=== PATIENT | female | born 1960 | race Caucasian/White ===

== ENCOUNTER 2017-12-27 19:04 | Emergency (ER) | payer MEDICAID ==
[~2017-12-27] VITALS: Ht 172.7 cm; Wt 61.0 kg
[2017-12-27] MEDS ORDERED: PRED20TA PO (20:30)
[2017-12-27] MEDS ORDERED: ALBU8.5H8 INH (20:30)
[2017-12-27] MEDS ORDERED: LEVO500T2 PO (20:30)
[2017-12-27] MEDS ORDERED: normal saline 1000ml 1,000 ML IV ONE (20:30)
[2017-12-27] MEDS ORDERED: levoFLOXACIN 750MG TABLET PO ONE (20:30)
[2017-12-27] MEDS ORDERED: methylPREDNISolone sod succ/PF 40mg inj. IV ONE (20:30)
[2017-12-27] MEDS ORDERED: ipratropium/albuterol 3ml nebule NEB ONE (20:30)
[2017-12-27 21:32] VITALS: BP 118/78
== END 2017-12-27 21:35 | disposition home or self-care (01) ==
LOC: ER 19:05
DX: R05 Cough (principal); J44.9 Chronic obstructive pulmonary disease, unspecified; F17.210 Nicotine dependence, cigarettes, uncomplicated; Z79.899 Other long term (current) drug therapy
CPT/HCPCS: 71045; 93005; 94640; 94760; 96361; 96374; 99284; J2920; J7030

== ENCOUNTER 2019-03-26 17:17 | Emergency (ER) | payer MEDICAID, OTHER ==
[~2019-03-26] VITALS: Ht 170.2 cm; Wt 56.0 kg
[~2019-03-26 17:17] MED LIST: ALBU8.5H8 INH
[2019-03-26 19:22] VITALS: BP 112/65
[2019-03-26] MEDS ORDERED: ipratropium/albuterol 3ml nebule NEB ONE (20:00)
== END 2019-03-26 20:29 | disposition left against medical advice (07) ==
LOC: ER 17:18
DX: J06.9 Acute upper respiratory infection, unspecified (principal); J44.9 Chronic obstructive pulmonary disease, unspecified; F17.200 Nicotine dependence, unspecified, uncomplicated; Z59.0 Homelessness; Z79.899 Other long term (current) drug therapy
CPT/HCPCS: 99281; 99283

== ENCOUNTER 2020-10-12 16:32 | Inpatient (IN) | payer MEDICAID ==
[~2020-10-12] VITALS: Ht 170.2 cm; Wt 57.0 kg
[2020-10-12] MEDS ORDERED: methylPREDNISolone sod succ 125mg/2ml vial IV ONE ×2 (17:10)
[2020-10-12] MEDS ORDERED: CefTRIAXone 2gm/D5W 50ml BAG 50 ML IV ONE (17:10)
[2020-10-12] MEDS ORDERED: normal saline 1000ML IV soln IVB ONE (17:10)
[2020-10-12] MEDS ORDERED: albuterol 2.5 MG/3 ML nebule NEB ONE (17:10)
[2020-10-12 17:33] LABS: BASOPHILS # (AUTO) 0.1 X10'3 (0-0.2); BASOPHILS % (AUTO) 0.9 % (0-1); EOSINOPHILS # (AUTO) 0.4 X10'3 (0-0.9); EOSINOPHILS % (AUTO) 4.6 % (0-6); HEMATOCRIT 39.9 % (35.0-45.0); HEMOGLOBIN 13.5 g/dl (12.0-16.0); LYMPHOCYTES # (AUTO) 3.1 X10'3 (1.1-4.8); LYMPHOCYTES % (AUTO) 33.1 % (21-51); MEAN CORPUSCULAR HEMOGLOBIN 30.5 PG (27.0-31.0); MEAN CORPUSCULAR HGB CONC 33.7 g/dL (33.0-36.5); MEAN CORPUSCULAR VOLUME 90.3 FL (78-98); MEAN PLATELET VOLUME 7.6 FL (7.4-10.4); MONOCYTES # (AUTO) 0.7 X10'3 (0-0.9); MONOCYTES % (AUTO) 7.6 % (2-12); NEUTROPHILS % (AUTO) 53.8 % (42-75); PLATELET COUNT 323 X10'3 (140-440); RED BLOOD COUNT 4.42 X10'6 (4.20-5.60); WHITE BLOOD COUNT 9.2 X10'3 (4.5-11.0)
[2020-10-12 17:49] LABS: ALANINE AMINOTRANSFERASE 16 U/L (12-78); ALBUMIN 3.5 G/DL (3.4-5.0); ALBUMIN/GLOBULIN RATIO 0.9 (1.1-1.5); ALKALINE PHOSPHATASE 63 IU/L (46-116); ANION GAP 8 (8-16); ASPARTATE AMINO TRANSFERASE 7 U/L (10-37); BILIRUBIN,TOTAL 0.2 MG/DL (0.1-1.0); BLOOD UREA NITROGEN 20 MG/DL (7-18); CALCIUM 8.9 MG/DL (8.5-10.1); CHLORIDE 110 MMOL/L (99-107); CREATININE 1.11 MG/DL (0.40-0.90); GLUCOSE 119 MG/DL (70-104); POTASSIUM 3.9 MMOL/L (3.5-5.1); SODIUM 144 MMOL/L (135-145); TOTAL CARBON DIOXIDE 26.2 MMOL/L (24-32); TOTAL PROTEIN 7.3 G/DL (6.4-8.2); eGFR 50 ML/MIN
[2020-10-12 17:58] LABS: PARTIAL THROMBOPLASTIN TIME 28 SECONDS (22-32)
[2020-10-12 18:00] LABS: MAGNESIUM 2.2 MG/DL (1.5-2.4)
[2020-10-12] MEDS ORDERED: azithromycin 250mg tablet PO ONE (18:20)
[2020-10-12] MEDS ORDERED: NO HOME MEDS (18:37)
[2020-10-12] MEDS ORDERED: potassium Cl 40MEQ/1/2NS 520ml 520 ML IV PRN ×2 (19:45)
[2020-10-12] MEDS ORDERED: magnesium Cl slow-release 64mg tablet PO PRN (19:45)
[2020-10-12] MEDS ORDERED: magnesium 2GM in 50ml NS 50 ML IV PRN (19:45)
[2020-10-12] MEDS ORDERED: potassium Cl 20 mEq SR tablet PO PRN ×2 (19:45)
[2020-10-12] MEDS ORDERED: morphine 2 MG/ML inj. syringe IV PRN (19:45)
[2020-10-12] MEDS ORDERED: HYDROcodone/acetaminophen 5mg/325mg tablet PO PRN (19:45)
[2020-10-12] MEDS ORDERED: mag hydrox/Alum hydrox/simeth 30ml oral suspension PO PRN (19:45)
[2020-10-12] MEDS ORDERED: magnesium 4gm in 100ml NS 100 ML IV PRN (19:45)
[2020-10-12] MEDS ORDERED: ondansetron/PF 4mg/2ml inj IV PRN (19:45)
[2020-10-12] MEDS ORDERED: acetaminophen 325mg tablet PO PRN ×2 (19:45)
[2020-10-12] MEDS ORDERED: magnesium hydroxide 30ml (MOM) UD suspension PO PRN (19:45)
[2020-10-12] MEDS: methylPREDNISolone sod succ 125mg/2ml vial IV SCH (20:00)
[2020-10-12] MEDS: K and/or MAG REPLACEMENT MC SCH (20:06)
--- NOTE | 2020-10-12 20:06 | NUR ---
Hospitalist at bedside for patient assessment and discussion of plan of care.
[2020-10-12] MEDS: normal saline 1000ml 1,000 ML IV SCH (20:37)
[2020-10-12] MEDS: heparin, porcine 5000 units/ml vial SQ SCH (20:38)
[2020-10-12] MEDS ORDERED: temazepam 15mg capsule PO PRN (21:00)
[2020-10-12] MEDS: levalbuterol 0.63mg/3ml nebule IH SCH (23:30)
[2020-10-13 02:30] VITALS: BP 107/57
[2020-10-13] MEDS: levalbuterol 0.63mg/3ml nebule IH SCH ×4 (02:45→20:12)
--- NOTE | 2020-10-13 06:00 | NUR ---
Patient in room PCU 3024. I have received report from Steve SAMUELS and had the opportunity to ask questions and assume patient care.
[2020-10-13 06:58] LABS: BASOPHILS % (AUTO) 0.3 % (0-1); EOSINOPHILS % (AUTO) 0 % (0-6); HEMATOCRIT 39.3 % (35.0-45.0); HEMOGLOBIN 12.9 g/dl (12.0-16.0); MEAN CORPUSCULAR HEMOGLOBIN 30.1 PG (27.0-31.0); MEAN CORPUSCULAR HGB CONC 32.8 g/dL (33.0-36.5); MEAN CORPUSCULAR VOLUME 91.8 FL (78-98); MEAN PLATELET VOLUME 7.9 FL (7.4-10.4); MONOCYTES # (AUTO) 0.1 X10'3 (0-0.9); MONOCYTES % (AUTO) 2.5 % (2-12); NEUTROPHILS % (AUTO) 78.2 % (42-75); PLATELET COUNT 326 X10'3 (140-440); RED BLOOD COUNT 4.28 X10'6 (4.20-5.60); WHITE BLOOD COUNT 5.1 X10'3 (4.5-11.0)
[2020-10-13 07:00] VITALS: BP 116/65
[2020-10-13 07:14] LABS: ALANINE AMINOTRANSFERASE 21 U/L (12-78); ALBUMIN 3.3 G/DL (3.4-5.0); ALBUMIN/GLOBULIN RATIO 0.9 (1.1-1.5); ALKALINE PHOSPHATASE 51 IU/L (46-116); ANION GAP 11 (8-16); ASPARTATE AMINO TRANSFERASE 15 U/L (10-37); BILIRUBIN,TOTAL 0.2 MG/DL (0.1-1.0); BLOOD UREA NITROGEN 19 MG/DL (7-18); BUN/CREATININE RATIO 22.1 (6.6-38.0); CALCIUM 8.8 MG/DL (8.5-10.1); CHLORIDE 108 MMOL/L (99-107); CREATININE 0.86 MG/DL (0.40-0.90); GLUCOSE 124 MG/DL (70-104); POTASSIUM 4.2 MMOL/L (3.5-5.1); SODIUM 144 MMOL/L (135-145); TOTAL CARBON DIOXIDE 25.4 MMOL/L (24-32); TOTAL PROTEIN 6.9 G/DL (6.4-8.2); eGFR 67 ML/MIN
[2020-10-13] MEDS: K and/or MAG REPLACEMENT MC SCH ×2 (08:00→19:25)
[2020-10-13] MEDS: levoFLOXACIN-Levaquin 500mg/D5 100 ML IV SCH (09:59)
[2020-10-13] MEDS: methylPREDNISolone sod succ 125mg/2ml vial IV SCH ×2 (09:59→19:24)
[2020-10-13] MEDS: furosemide 20MG tablet PO SCH (10:00)
[2020-10-13] MEDS: heparin, porcine 5000 units/ml vial SQ SCH ×2 (10:00→19:24)
[2020-10-13 11:00] VITALS: BP 116/57
[2020-10-13 15:00] VITALS: BP 123/57
[2020-10-13 18:00] VITALS: BP 114/65
--- NOTE | 2020-10-13 18:10 | NUR ---
Problems reprioritized. Patient report given, questions answered & plan of care reviewed with Juliann SAMUELS.
[2020-10-13 22:00] VITALS: BP 130/65
[2020-10-14 02:00] VITALS: BP 113/65
[2020-10-14] MEDS: levalbuterol 0.63mg/3ml nebule IH SCH ×4 (02:51→19:59)
--- NOTE | 2020-10-14 06:05 | NUR ---
Patient in room PCU 3024. I have received report from Juliann SAMUELS and had the opportunity to ask questions and assume patient care.
[2020-10-14 06:12] LABS: BASOPHILS % (AUTO) 0.1 % (0-1); EOSINOPHILS % (AUTO) 0 % (0-6); HEMATOCRIT 38.2 % (35.0-45.0); HEMOGLOBIN 12.6 g/dl (12.0-16.0); LYMPHOCYTES # (AUTO) 0.9 X10'3 (1.1-4.8); LYMPHOCYTES % (AUTO) 10.4 % (21-51); MEAN CORPUSCULAR HEMOGLOBIN 30.1 PG (27.0-31.0); MEAN CORPUSCULAR VOLUME 91.2 FL (78-98); MONOCYTES # (AUTO) 0.4 X10'3 (0-0.9); MONOCYTES % (AUTO) 4.3 % (2-12); NEUTROPHILS # (AUTO) 7.5 X10'3 (1.8-7.7); NEUTROPHILS % (AUTO) 85.2 % (42-75); PLATELET COUNT 322 X10'3 (140-440); RED BLOOD COUNT 4.19 X10'6 (4.20-5.60); WHITE BLOOD COUNT 8.8 X10'3 (4.5-11.0)
[2020-10-14 06:40] LABS: ALANINE AMINOTRANSFERASE 14 U/L (12-78); ALBUMIN 3.2 G/DL (3.4-5.0); ALBUMIN/GLOBULIN RATIO 0.9 (1.1-1.5); ALKALINE PHOSPHATASE 48 IU/L (46-116); ANION GAP 10 (8-16); ASPARTATE AMINO TRANSFERASE 14 U/L (10-37); BILIRUBIN,TOTAL 0.2 MG/DL (0.1-1.0); BLOOD UREA NITROGEN 24 MG/DL (7-18); BUN/CREATININE RATIO 26.4 (6.6-38.0); CALCIUM 8.8 MG/DL (8.5-10.1); CHLORIDE 106 MMOL/L (99-107); CREATININE 0.91 MG/DL (0.40-0.90); GLUCOSE 122 MG/DL (70-104); MAGNESIUM 1.9 MG/DL (1.5-2.4); POTASSIUM 4.1 MMOL/L (3.5-5.1); SODIUM 142 MMOL/L (135-145); TOTAL CARBON DIOXIDE 25.9 MMOL/L (24-32); TOTAL PROTEIN 6.7 G/DL (6.4-8.2); eGFR 63 ML/MIN
[2020-10-14 07:00] VITALS: BP 122/61
--- NOTE | 2020-10-14 07:03 | NUR ---
Patient in room PCU 3024. I have received report from ABRIL BOSE and had the opportunity to ask questions and assume patient care.
[2020-10-14] MEDS: K and/or MAG REPLACEMENT MC SCH ×2 (07:09→20:00)
[2020-10-14] MEDS: levoFLOXACIN-Levaquin 500mg/D5 100 ML IV SCH (07:33)
[2020-10-14] MEDS: heparin, porcine 5000 units/ml vial SQ SCH ×2 (07:34→21:36)
[2020-10-14] MEDS: methylPREDNISolone sod succ 125mg/2ml vial IV SCH ×2 (07:35→21:31)
[2020-10-14] MEDS: furosemide 20MG tablet PO SCH ×2 (07:36→21:34)
[2020-10-14 11:00] VITALS: BP 119/57
[2020-10-14 15:00] VITALS: BP 128/54
[2020-10-14 18:00] VITALS: BP 143/66
--- NOTE | 2020-10-14 18:35 | NUR ---
Problems reprioritized. Patient report given, questions answered & plan of care reviewed with ABRIL BARDALES.
[2020-10-14] MEDS: normal saline 1000ml 1,000 ML IV SCH (19:45)
[2020-10-14] MEDS: lactobacillus rhamnosus 10,000 MMU CELLS/CAPSULE PO SCH (21:34)
[2020-10-14 22:00] VITALS: BP 116/54
[2020-10-15 02:00] VITALS: BP 116/70
[2020-10-15] MEDS: levalbuterol 0.63mg/3ml nebule IH SCH ×2 (03:27→07:21)
[2020-10-15 06:08] LABS: BASOPHILS # (AUTO) 0.1 X10'3 (0-0.2); BASOPHILS % (AUTO) 0.9 % (0-1); EOSINOPHILS % (AUTO) 0.1 % (0-6); HEMATOCRIT 40.3 % (35.0-45.0); HEMOGLOBIN 13.3 g/dl (12.0-16.0); LYMPHOCYTES # (AUTO) 0.8 X10'3 (1.1-4.8); LYMPHOCYTES % (AUTO) 8.6 % (21-51); MEAN CORPUSCULAR HEMOGLOBIN 30.2 PG (27.0-31.0); MEAN CORPUSCULAR HGB CONC 33.1 g/dL (33.0-36.5); MEAN CORPUSCULAR VOLUME 91.2 FL (78-98); MEAN PLATELET VOLUME 8.3 FL (7.4-10.4); MONOCYTES # (AUTO) 0.2 X10'3 (0-0.9); MONOCYTES % (AUTO) 1.7 % (2-12); NEUTROPHILS % (AUTO) 88.7 % (42-75); PLATELET COUNT 331 X10'3 (140-440); RED BLOOD COUNT 4.42 X10'6 (4.20-5.60); RED CELL DISTRIBUTION WIDTH 14.2 % (11.5-14.5)
[2020-10-15 06:17] LABS: ALANINE AMINOTRANSFERASE 21 U/L (12-78); ALBUMIN 3.3 G/DL (3.4-5.0); ALBUMIN/GLOBULIN RATIO 0.9 (1.1-1.5); ALKALINE PHOSPHATASE 47 IU/L (46-116); ANION GAP 8 (8-16); ASPARTATE AMINO TRANSFERASE 13 U/L (10-37); BILIRUBIN,TOTAL 0.2 MG/DL (0.1-1.0); BLOOD UREA NITROGEN 21 MG/DL (7-18); BUN/CREATININE RATIO 20.6 (6.6-38.0); CALCIUM 8.8 MG/DL (8.5-10.1); CHLORIDE 106 MMOL/L (99-107); CREATININE 1.02 MG/DL (0.40-0.90); GLUCOSE 148 MG/DL (70-104); SODIUM 142 MMOL/L (135-145); eGFR 55 ML/MIN
--- NOTE | 2020-10-15 06:33 | NUR ---
Patient in room PCU 3024. I have received report from Graciela SAMUELS and had the opportunity to ask questions and assume patient care.
--- NOTE | 2020-10-15 06:33 | NUR ---
Problems reprioritized. Patient report given, questions answered & plan of care reviewed with Nikki SAMUELS.
[2020-10-15 07:00] VITALS: BP 130/69
[2020-10-15] MEDS: K and/or MAG REPLACEMENT MC SCH (08:00)
[2020-10-15] MEDS: levoFLOXACIN-Levaquin 500mg/D5 100 ML IV SCH (08:02)
[2020-10-15] MEDS: lactobacillus rhamnosus 10,000 MMU CELLS/CAPSULE PO SCH (08:03)
[2020-10-15] MEDS: furosemide 20MG tablet PO SCH (08:03)
[2020-10-15] MEDS: heparin, porcine 5000 units/ml vial SQ SCH (08:03)
[2020-10-15] MEDS: methylPREDNISolone sod succ 125mg/2ml vial IV SCH (08:07)
[2020-10-15] MEDS ORDERED: BUDE10.22 INH (10:09)
[2020-10-15] MEDS ORDERED: LEVA15HF4 INH (10:09)
[2020-10-15] MEDS ORDERED: PRED10TA23 PO (10:09)
[2020-10-15] MEDS ORDERED: FURO20TA4 PO (10:09)
[2020-10-15 11:00] VITALS: BP 116/65
--- NOTE | 2020-10-15 11:16 | NUR ---
RX called into [facility]
--- NOTE | 2020-10-15 12:04 | NUR ---
Patient dc to home. RX called into [facility] in [place]. PIV was removed with cannula intact. DC instructions and warning s/s were reviewed with the patient and she verbalized understanding. Patient was alert, oriented , and appropriated at time of dc.
== END 2020-10-15 11:38 | disposition home or self-care (01) | DRG 140 ==
LOC: ER 16:33 → ED HOLD 19:42 → PCU 3S 21:44
PROVIDERS: ADMIT Internal Medicine; ATTEND Internal Medicine
DX: J44.1 Chronic obstructive pulmonary disease with (acute) exacerbation (principal); J96.01 Acute respiratory failure with hypoxia; I27.81 Cor pulmonale (chronic); J20.9 Acute bronchitis, unspecified; I50.9 Heart failure, unspecified; Z20.822 Contact with and (suspected) exposure to COVID-19; F17.210 Nicotine dependence, cigarettes, uncomplicated; Z59.0 Homelessness; Z79.51 Long term (current) use of inhaled steroids; Z79.899 Other long term (current) drug therapy; Z71.6 Tobacco abuse counseling
CPT/HCPCS: 36415; 71046; 80053; 83605; 83735; 83880; 84145; 84484; 85025; 85610; 85730; 87040; 87081; 87635; 93005; 94640; 94760; 96365; 96375; 97116; 97162; 97530; 99285; C9803; G0378; J0696; J1644; J1956; J2930; J7030; J7614

== ENCOUNTER 2022-02-23 19:48 | Emergency (ER) | payer MEDICAID ==
[~2022-02-23] VITALS: Ht 170.2 cm; Wt 54.5 kg
[~2022-02-23 19:48] MED LIST changes: -ALBU8.5H8 INH; +BUDE10.22 INH; +FURO20TA4 PO; +LEVA15HF4 INH
[2022-02-23] MEDS ORDERED: albuterol 2.5 MG/3 ML nebule CONTNEB PRN (20:00)
[2022-02-23] MEDS ORDERED: albuterol 2.5 MG/3 ML nebule ONE (20:09)
[2022-02-23] MEDS ORDERED: methylPREDNISolone sod succ 125mg/2ml vial IV ONE (20:11)
[2022-02-23 20:17] LABS: BASOPHILS # (AUTO) 0.1 X10'3 (0-0.2); BASOPHILS % (AUTO) 1.3 % (0-1); EOSINOPHILS # (AUTO) 0.4 X10'3 (0-0.9); EOSINOPHILS % (AUTO) 4.4 % (0-6); HEMATOCRIT 38.5 % (35.0-45.0); HEMOGLOBIN 13.1 g/dl (12.0-16.0); LYMPHOCYTES # (AUTO) 2.7 X10'3 (1.1-4.8); LYMPHOCYTES % (AUTO) 29.7 % (21-51); MEAN CORPUSCULAR HEMOGLOBIN 30.6 PG (27.0-31.0); MEAN CORPUSCULAR HGB CONC 34.1 g/dL (33.0-36.5); MEAN CORPUSCULAR VOLUME 89.8 FL (78-98); MEAN PLATELET VOLUME 7.4 FL (7.4-10.4); MONOCYTES # (AUTO) 0.9 X10'3 (0-0.9); MONOCYTES % (AUTO) 9.6 % (2-12); NEUTROPHILS # (AUTO) 4.9 X10'3 (1.8-7.7); PLATELET COUNT 344 X10'3 (140-440); RED BLOOD COUNT 4.29 X10'6 (4.20-5.60)
[2022-02-23 20:35] LABS: ALANINE AMINOTRANSFERASE 21 U/L (12-78); ALBUMIN 3.4 G/DL (3.4-5.0); ALBUMIN/GLOBULIN RATIO 0.9 (1.1-1.5); ALKALINE PHOSPHATASE 62 IU/L (46-116); ANION GAP 9 (8-16); ASPARTATE AMINO TRANSFERASE 17 U/L (10-37); BILIRUBIN,TOTAL 0.2 MG/DL (0.1-1.0); BLOOD UREA NITROGEN 19 MG/DL (7-18); BUN/CREATININE RATIO 23.5 (6.6-38.0); CALCIUM 9.7 MG/DL (8.5-10.1); CHLORIDE 104 MMOL/L (99-107); CREATININE 0.81 MG/DL (0.40-0.90); GLUCOSE 96 MG/DL (70-104); POTASSIUM 3.8 MMOL/L (3.5-5.1); SODIUM 140 MMOL/L (135-145); TOTAL PROTEIN 7.3 G/DL (6.4-8.2); eGFR 71 ML/MIN
[2022-02-23 20:47] VITALS: BP 130/71
[2022-02-23] MEDS ORDERED: ALBU8HFA PO (21:23)
[2022-02-23] MEDS ORDERED: PRED20TA PO (21:23)
== END 2022-02-23 22:46 | disposition home or self-care (01) ==
LOC: ER 19:48
DX: J44.1 Chronic obstructive pulmonary disease with (acute) exacerbation (principal)
CPT/HCPCS: 36415; 71045; 80053; 83880; 84484; 85025; 93005; 94640; 94760; 99285; A7015